=== PATIENT | male | born 1975 | race Caucasian/White ===

== ENCOUNTER 2022-10-13 08:25 | Emergency (ER) | payer OTHER, SELFPAY ==
[2022-10-13 08:34] VITALS: BP 128/106; PULSE 86; RESP 14; TEMP 36.5; O2SAT 98
[2022-10-13 08:43] VITALS: BP 128/106; PULSE 86; RESP 14; TEMP 36.5; O2SAT 98
--- NOTE | 2022-10-13 08:57 | ED.GENADULT ---
HPI - General Adult General Chief complaint: Skin/Abscess/Foreign Body Stated complaint: Poision Patience Source: patient Mode of arrival: ambulatory Limitations: no limitations History of Present Illness HPI narrative: PATIENT PRESENTS FOR EVALUATION OF SKIN CONCERNS. EIGHT DAYS AGO HE WAS EXPOSED TO POISON PATIENCE DEVELOPED SOME VESICULAR LESIONS TO THE BILATERAL UPPER EXTREMITIES. HE SAW HIS PRIMARY DOCTOR 6 DAYS AGO AND WAS GIVEN A STEROID SHOT IN THE OFFICE AND A MEDROL DOSEPAK WHICH HE COMPLETED DIRECTED. HE REPORTS PERSISTENCE OF THE VESICULAR LESIONS. HE NOW HAS ERYTHEMA IN THE ANTECUBITAL REGION OF THE LEFT UPPER EXTREMITY MIGRATING PROXIMALLY AND DISTALLY. HE ALSO REPORTS SWELLING IN THE LEFT UPPER EXTREMITY OF THIS MORNING. STATES THE PAIN IN THE LEFT UPPER EXTREMITIES 5/10 IN SEVERITY AND HE HAS ASSOCIATED PRURITUS. HE IS NOT DIABETIC. HE DOES NOT SMOKE. Related Data Allergies Allergy/AdvReac Type Severity Reaction Status Date / Time No Known Allergies Allergy Verified 10/13/22 08:43 Review of Systems Review of Systems: CONSTITUTIONAL: DENIES FEVER, CHILLS, OR SWEATS. EYES: DENIES VISUAL CHANGES, REDNESS, OR DISCHARGE. ENT: DENIES RHINORRHEA, CONGESTION, SORE THROAT, OR OTALGIA. CARDIOVASCULAR: DENIES CHEST PAIN, PALPITATIONS, OR EDEMA. RESPIRATORY: DENIES COUGH OR DYSPNEA. GASTROINTESTINAL: DENIES ABDOMINAL PAIN, NAUSEA, VOMITING, OR DIARRHEA. GENITOURINARY: DENIES DYSURIA OR HEMATURIA. SKIN: REPORTS VESICULAR LESIONS TO BUE WITH ERYTHEMA AND PRURITIS MUSCULOSKELETAL: REPORTS PAIN IN LUE NEUROLOGIC: DENIES HEADACHE, NUMBNESS, DIZZINESS, OR WEAKNESS. PSYCHIATRIC: DENIES ANXIETY OR DEPRESSION. [facility] Past Medical History Medical History Cellulitis Surgical History Surgical History (Updated 10/13/22 @ 09:17 by CECILIA Solano, ) History of shoulder surgery Family History Family History Mother Family history non-contributory Social History Social History Smoking status: Never smoker Substance use: never Gender identity (if verbalized by the patient): Male Sexual Orientation (if Verbalized by the Patient): Straight or Heterosexual Spiritual care concerns: No Exam Narrative: GENERAL: WELL-APPEARING, WELL-NOURISHED, AND IN NO ACUTE DISTRESS. HEAD: NORMOCEPHALIC, ATRAUMATIC. EYES: PERRLA AND EOMI. ENT: NARES CLEAR, NO RHINORRHEA OR EPISTAXIS. MUCOUS MEMBRANES MOIST. 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 BILATERAL TMS PEARLY CARTER NONBULGING NECK: SUPPLE. NO ADENOPATHY OR MASSES. NO CAROTID BRUITS OR JVD CHEST: CLEAR TO AUSCULTATION. NO RESPIRATORY DISTRESS. NO WHEEZES RALES OR RHONCHI HEART: REGULAR RATE AND RHYTHM. NO MURMUR HEARD. NORMAL PERIPHERAL PULSES. ABDOMEN: SOFT, NONTENDER, NONDISTENDED, NORMAL ACTIVE BOWEL SOUNDS. EXTREMITIES: NORMAL RANGE OF MOTION. 1+ NONPITTING EDEMA TO LEFT UPPER EXTREMITY SKIN: THERE ARE VESICULAR LESIONS TO RIGHT FOREARM WITH ASSOCIATED SCRATCH [place]. THERE ARE VESICULAR LESIONS TO LUE, SOME OF WHICH ARE OPEN WITH DRIED SEROUS DRAINAGE. THERE IS ERYTHEMA AND WARMTH TO LEFT ANTECUBITAL REGION WHICH EXTENDS DISTALLY TO MIDSHAFT OF FOREARM AND PROXIMALLY TO MIDSHAFT OF LEFT HUMERUS NEURO: NO FOCAL DEFICITS. ALERT AND ORIENTED X3. PSYCH: NORMAL MOOD AND AFFECT. Course Course Emergency Course: THIS IS A 47-YEAR-OLD MALE WHO PRESENTED FOR EVALUATION OF SKIN SYMPTOMS. THERE IS DEFINITE EVIDENCE OF DERMATITIS SECONDARY TO POISON PATIENCE EXPOSURE. APPEARS HE HAS A CELLULITIS AT THE PRESENT TIME WELL. WILL PLACE HIM ON A 3 WEEK COURSE OF STEROID TAPER AND ALSO TREAT HIM FOR CELLULITIS WITH BACTRIM AND KEFLEX. I DID DISCUSS THE POSSIBILITY OF DVT IN THE LEFT UPPER EXTREMITY. I DID OFFER TO TRANSFER HIM TO THE EMERGENCY DEPARTMENT. HE DECLINED. WE AGR
== END 2022-10-13 08:58 | disposition home or self-care (01) ==
PROVIDERS: Emergency Provider Nurse Practitioner; PCP Internal Medicine
DX: L23.7 Allergic contact dermatitis due to plants, except food (principal); L03.114 Cellulitis of left upper limb
CPT/HCPCS: 99213; G0463